=== PATIENT | male | born 1975 | race Hispanic/Latino ===

== ENCOUNTER 2020-06-29 21:57 | Emergency (ER) | payer BC | END 2020-06-29 22:50 | disposition home or self-care (01) | LOC: EDH 21:57 | DX: S60.221A Contusion of right hand, initial encounter (principal); W22.8XXA Striking against or struck by other objects, initial encounter; Y93.89 Activity, other specified; Y92.098 Other place in other non-institutional residence as the place of occurrence of the external cause; Y99.8 Other external cause status | CPT/HCPCS: 73130 ==

== ENCOUNTER 2021-12-24 23:37 | Emergency (ER) | payer BC ==
[~2021-12-24] VITALS: Ht 177.8 cm; Wt 106.6 kg
[2021-12-25] MEDS ORDERED: KETOROLAC 30MG VIAL (30MG/ML) IVP ONE
[2021-12-25] MEDS ORDERED: ZOSYN 3.375GM +NS 50ML IV ONE
[2021-12-25] MEDS ORDERED: LACTATED RINGERS 1000ML 1,000 ML IV ONE
[2021-12-25 00:11] LABS: APPEARANCE,URINE CLEAR (CLEAR); BILIRUBIN,URINE NEGATIVE (NEGATIVE); COLOR,URINE YELLOW (YELLOW); GLUCOSE, URINE (UA) NEGATIVE (NEGATIVE); KETONES,URINE NEGATIVE (NEGATIVE); LEUKOCYTE ESTERASE ,URINE NEGATIVE (NEGATIVE); NITRATE,URINE NEGATIVE (NEGATIVE); OCCULT BLOOD,URINE NEGATIVE (NEGATIVE); PROTEIN,URINE NEGATIVE (NEGATIVE); UROBILINOGEN,URINE 0.2 mg/dL (0.2-1.0)
[2021-12-25 00:39] LABS: BASOPHILS % (AUTO) 0.5 % (0.0-5.0); EOSINOPHILS % (AUTO) 0.9 % (0.0-8.0); HEMATOCRIT 44.5 % (42-54); LYMPHOCYTES % (AUTO) 16.9 % (21.0-51.0); MEAN CORPUSCULAR HEMOGLOBIN 25.2 pg (27.0-33.0); MEAN CORPUSCULAR HGB CONC 32.8 g/dL (32.0-36.0); MEAN CORPUSCULAR VOLUME 76.9 fL (79-99); MONOCYTES % (AUTO) 7.7 % (3.0-13.0); NEUTROPHILS % (AUTO) 73.5 % (40.0-77.0); PLATELET COUNT (AUTO) 201 K/uL (130-400); RED BLOOD CELL COUNT(AUTO) 5.79 MIL/uL (4.50-6.20); RED CELL DISTRIBUTION WIDTH 13.3 % (11.0-15.5)
[2021-12-25 00:43] LABS: POTASSIUM 3.8 mmol/L (3.5-5.1)
[2021-12-25 00:48] LABS: ALBUMIN 3.6 g/dL (3.5-5.0); TOTAL PROTEIN, SERUM 7.5 g/dL (6.0-8.3)
[2021-12-25] MEDS ORDERED: IOHEXOL 350 MG/ML 100ML INFUS..BTL IV ONE (00:56)
[2021-12-25] MEDS ORDERED: CIPR-278 PO (02:19)
[2021-12-25] MEDS ORDERED: KETO10 PO (02:19)
[2021-12-25 02:30] VITALS: BP 122/78
== END 2021-12-25 02:41 | disposition home or self-care (01) ==
LOC: EDH 23:37
DX: K57.32 Diverticulitis of large intestine without perforation or abscess without bleeding (principal); Z79.1 Long term (current) use of non-steroidal anti-inflammatories (NSAID)
CPT/HCPCS: 99284; 74177; 80053; 85025; 81003; 36415; 96365; 96375 ×2; J7120; J1885; J2543; Q9967